=== PATIENT | male | born 1960 | race African-American/Black ===

== ENCOUNTER 2023-07-14 10:28 | Emergency (ER) | payer MEDICARE ==
[2023-07-14] MEDS ORDERED: Acetaminophen 500 MG TAB ONE (10:45)
[2023-07-14] MEDS ORDERED: Ketorolac Tromethamine 30 MG (1 mL) VIAL ONE (10:45)
== END 2023-07-14 11:12 | disposition home or self-care (01) ==
LOC: BURERS 10:28
DX: S20.212A Contusion of left front wall of thorax, initial encounter (principal); I25.10 Atherosclerotic heart disease of native coronary artery without angina pectoris; I10 Essential (primary) hypertension; F17.210 Nicotine dependence, cigarettes, uncomplicated; W17.89XA Other fall from one level to another, initial encounter
CPT/HCPCS: 71045; 96372; J1885

== ENCOUNTER 2024-12-16 10:16 | Emergency (ER) | payer MEDICARE ==
[2024-12-16] MEDS ORDERED: predniSONE 20 MG TAB ONE (11:31)
== END 2024-12-16 11:34 | disposition home or self-care (01) ==
LOC: BURERS 10:16
DX: M54.16 Radiculopathy, lumbar region (principal); I25.10 Atherosclerotic heart disease of native coronary artery without angina pectoris; F17.210 Nicotine dependence, cigarettes, uncomplicated; W17.2XXA Fall into hole, initial encounter
CPT/HCPCS: 36415; 85379; 99283; J7512